=== PATIENT | male | born 1975 | race Caucasian/White ===

== ENCOUNTER 2016-05-24 17:57 | Emergency (ER) | payer OTHER ==
[~2016-05-24] VITALS: Ht 190.5 cm; Wt 110.0 kg
[~2016-05-24 17:57] MED LIST: FLEXERIL10 MG PO; MOTRIN800 MG PO; PREDNISONE10 MG PO; ULTRAM50 MG PO
[2016-05-24] MEDS ORDERED: NORCO 5/3251 TABLET PO (20:35)
[2016-05-24] MEDS ORDERED: LEVOTHYROXINE125 MCG PO (20:38)
[2016-05-24 21:03] VITALS: BP 123/88
== END 2016-05-24 21:05 | disposition home or self-care (01) ==
LOC: EME 17:57 → EXP 17:57
DX: M75.51 Bursitis of right shoulder (principal)
CPT/HCPCS: 99281; 99284; J1100

== ENCOUNTER 2016-07-08 23:05 | Emergency (ER) | payer OTHER ==
[~2016-07-08] VITALS: Ht 190.5 cm; Wt 101.5 kg
[~2016-07-08 23:05] MED LIST changes: +LEVOTHYROXINE125 MCG PO; +NORCO 5/3251 TABLET PO
[2016-07-09 00:38] LABS: HEMATOCRIT 42.4 % (38.0-50.0); MCH 28.1 PG (29.0-34.0); MCHC 32.1 G/DL (30.0-36.0); MCV 87.6 FL (86-99); MEAN PLAT.VOLUME 10.3 uM^3 (9.0-12.4); PLATELET COUNT 210 K/uL (156-360); RBC DIS.WIDTH-CV 13.2 % (11.8-14.6); RBC DIS.WIDTH-SD 42.5 % (39-53); RED BLOOD COUNT 4.84 M/uL (4.00-5.50)
[2016-07-09 00:55] LABS: CHLORIDE 103 mEq/L (99-109); POTASSIUM 4.1 mEq/L (3.7-5.4); SODIUM 140 mEq/L (136-147)
[2016-07-09 00:58] LABS: ANION GAP 10 MEQ/L (2-14)
[2016-07-09 00:59] LABS: TOTAL BILIRUBIN 0.6 mg/dL (0.0-1.0)
[2016-07-09 01:00] LABS: ALKALINE PHOSPHATASE 38 IU/L (3-129)
[2016-07-09 01:01] LABS: GFR ESTIMATE (CALCULATED) > 59 mL/min/
[2016-07-09 01:02] LABS: UREA NITROGEN (BUN) 16 mg/dL (9-23)
[2016-07-09 01:08] LABS: GLUCOSE 114 mg/dL (70-99)
[2016-07-09] MEDS ORDERED: LIDOCAINE20 MG/1 M5 PO (02:10)
[2016-07-09] MEDS ORDERED: TRAMADOL HCL50 MG PO (02:10)
[2016-07-09 02:28] VITALS: BP 130/85
[2016-07-09] MEDS ORDERED: PREDNISONE5 MG PO (17:43)
== END 2016-07-09 02:34 | disposition home or self-care (01) ==
LOC: EME 23:05
PROVIDERS: Physician Assistant
DX: K12.0 Recurrent oral aphthae (principal); S10.12XA Blister (nonthermal) of throat, initial encounter; X58.XXXA Exposure to other specified factors, initial encounter; H92.01 Otalgia, right ear; R10.9 Unspecified abdominal pain; E03.9 Hypothyroidism, unspecified
CPT/HCPCS: 70360; 80053; 82607; 85027; 87651 90; 99281; 99285; J1200; J1885; J7030

== ENCOUNTER → 2016-07-09 | Outpatient (CLI) | payer OTHER ==
[~2016-07-09] VITALS: Ht 190.5 cm; Wt 102.0 kg
[~2016-07-09] MED LIST changes: +LIDOCAINE20 MG/1 M5 PO; +PREDNISONE5 MG PO; +TRAMADOL HCL50 MG PO
[2016-07-09 17:39] VITALS: BP 119/68
== END | disposition home or self-care (01) ==
LOC: IVINF 17:18
DX: R11.2 Nausea with vomiting, unspecified (principal); E86.0 Dehydration
CPT/HCPCS: 96360; 96361; J7030

== ENCOUNTER 2017-04-25 17:35 | Emergency (ER) | payer OTHER ==
[~2017-04-25] VITALS: Ht 190.5 cm; Wt 129.0 kg
[2017-04-25 19:06] VITALS: BP 134/78
== END 2017-04-25 19:07 | disposition home or self-care (01) ==
LOC: EME 17:35
DX: L30.9 Dermatitis, unspecified (principal); M79.605 Pain in left leg; E03.9 Hypothyroidism, unspecified; Z87.891 Personal history of nicotine dependence; Z88.0 Allergy status to penicillin
CPT/HCPCS: 93971; 99281; 99284